=== PATIENT | male | born 1990 | race Caucasian/White ===

== ENCOUNTER 2021-10-13 11:31 | Day surgery (SDC) | payer OTHER ==
[~2021-10-13] VITALS: Ht 182.9 cm; Wt 101.2 kg
[~2021-10-13 11:31] MED LIST: ANTACID SUSP 30 ML UDC (MYLANTA) PO PRN; CALCIUM CARBONATE 500 MG (TUMS) TAB.CHEW PO PRN; MELATONIN 3 MG TABLET PO PRN; ONDANSETRON 4 MG/2 ML (SDV) Z0FRAN IV PRN; VANCOMYCIN INJECTION 0.1 MG in NS (IVPB) 250 ML IV SCH; polyethylene glycoL POWDER 17 GM (MIRALAX) PACK PO PRN
[2021-10-13] MEDS ORDERED: LIDOCAINE/EPI 1%-1:200,000 (XYLOCAINE) 30 ML VIAL INJ ONE (12:30)
[2021-10-13 12:44] VITALS: BP 128/87
--- NOTE | 2021-10-13 13:33 | CONSULTATION REPORT ---
DATE OF SERVICE: 10/13/2021 ADMITTING PHYSICIAN: Dr. Carlie Arteaga. HISTORY OF PRESENT ILLNESS: The patient is a 31-year-old male who is seen in the Emergency Department with pain and swelling along the volar surface of the right forearm. 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 He reports that two days ago, he felt a small bump and he felt that this was an insect bite and this became pruritic, and he did itch this. Approximately a day and half later, the area became much more red, erythematous as well as painful. He was started on oral antibiotics; however, this did not appear to help. On examination, there is an area of redness and swelling along the volar aspect of the right upper extremity extending beyond the elbow. There is some hardness and some mild fluctuance that may indicate an early abscess as well. PAST MEDICAL HISTORY: None. PAST SURGICAL HISTORY: Left inguinal hernia repair. ALLERGIES: PENICILLIN. MEDICATIONS: None. SOCIAL HISTORY: Positive smoke 15 pack years, social alcohol. FAMILY HISTORY: Noncontributory. VITAL SIGNS: Stable, afebrile. REVIEW OF SYSTEMS: Well-nourished male currently in no acute distress. He is not experiencing any shortness of breath or difficulty breathing. No chest pain, palpitations, diaphoresis. No nausea, vomiting, no diarrhea or constipation. No fever, chills, no recent inadvertent weight loss. All other review of systems negative. PHYSICAL EXAMINATION: CHEST: Clear. Good breath sounds bilaterally. HEART: Regular, no murmurs. EXTREMITIES: No lower extremity edema, negative Homans sign. HEENT: No scleral icterus. NECK: No cervical lymphadenopathy. ABDOMEN: Soft, nontender, nondistended. SKIN: Along the volar aspect of the right forearm is an area of redness as well as crusted over dry material. There is a small area of fluctuance as well as surrounding redness and erythema extending beyond the elbow. This is tender to palpation as well. ASSESSMENT AND PLAN: A 31-year-old male with early abscess as well as surrounding cellulitis of the right volar aspect of the upper extremity. He has had failed outpatient oral antibiotic treatment and will be admitted for IV antibiotics and we will also proceed with an incision and drainage and send the fluid off for culture and sensitivity to tailor antibiotic regimen. Job ID: [id number] DocumentID: [id number] Dictated Date: 10/13/2021 12:28:54 Care Team Assistant Date: 10/13/2021 13:15:19 Dictated By: WES BERRY MD [facility]
[2021-10-13 13:51] LABS: HEMATOCRIT 47 % (40-54); HEMOGLOBIN 16.2 g/dL (13.3-17.7); MEAN CORPUSCULAR HEMOGLOBIN 31 pg (25-34); MEAN CORPUSCULAR HGB CONC 35 g/dL (32-36); MEAN CORPUSCULAR VOLUME 90 fL (80-99); PLATELET COUNT 257 10^3/uL (130-400); WHITE BLOOD COUNT 7.7 10^3/uL (4.3-11.0)
[2021-10-13] MEDS: NS IV 1000 ML 1,000 ML IV SCH ×3 (13:53→23:35)
[2021-10-13] MEDS: VANCOMYCIN 1 GM/NS 250 ML IVPB IV SCH ×4 (13:54→20:51)
[2021-10-13] MEDS ORDERED: DOXY100C5 PO (14:01)
[2021-10-13] MEDS ORDERED: CEPH500C PO (14:01)
[2021-10-13 14:12] LABS: CALCIUM 9.4 MG/DL (8.5-10.1); CREATININE SERUM 0.89 MG/DL (0.60-1.30); POTASSIUM 4.4 MMOL/L (3.6-5.0)
[2021-10-13 15:19] VITALS: BP 130/91
[2021-10-13] MEDS ORDERED: cefTRIAXone 2,000 MG in NS (IVPB) 50 ML IV SCH (18:00)
[2021-10-13] MEDS ORDERED: ACETAMINOPHEN 325 MG TABLET PO PRN (18:00)
[2021-10-13 19:07] VITALS: BP 138/74
--- NOTE | 2021-10-13 22:55 | OPERATIVE REPORT ---
DATE OF SERVICE: 10/13/2021 PREOPERATIVE DIAGNOSIS: Right arm abscess and cellulitis. POSTOPERATIVE DIAGNOSIS: Right arm abscess and cellulitis. PROCEDURE: Incision and drainage, right upper extremity abscess. SURGEON: Wes Berry MD ANESTHESIA: Local. ESTIMATED BLOOD LOSS: Minimal. FINDINGS: Small abscess cavity with a turbid fluid. DISPOSITION: The patient tolerated the procedure well. 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 He states that he does do a significant amount of lifting and exertion as well as sweating. He reports what he thought was an insect bite along the volar aspect of the right upper extremity. This was pruritic and he did itch this. Since that time, he was placed on oral antibiotics; however, he did develop worsening redness, erythema as well as an area of fluctuance as well as edema of the forearm. He is not experiencing any systemic symptoms of fever, no chills. DESCRIPTION OF PROCEDURE: The right upper extremity was prepped and draped in standard surgical fashion. A 1% lidocaine with epinephrine was used to anesthetize overlying skin to the lesion. A longitudinal incision was made over the abscess using a 10 blade where a small abscess cavity with turbid fluid was identified. Loculations were then broken up bluntly. The fluid was sent for culture and sensitivity. Wound was then packed with sterile gauze followed by 4 x 4 gauze followed by Shonna wrap. The patient tolerated the procedure well. We will proceed with IV antibiotics and await culture and sensitivity to fine tailor long-term antibiotic regimen. Job ID: [id number] DocumentID: [id number] Dictated Date: 10/13/2021 12:32:36 Automotive Software Engineer Date: 10/13/2021 22:54:34 Dictated By: WES BERRY MD
[2021-10-14 00:11] VITALS: BP 117/70
[2021-10-14 03:41] VITALS: BP 124/64
[2021-10-14] MEDS: VANCOMYCIN 1 GM/NS 250 ML IVPB IV SCH ×2 (04:51)
[2021-10-14 05:57] LABS: HEMATOCRIT 41 % (40-54); HEMOGLOBIN 14.1 g/dL (13.3-17.7); MEAN CORPUSCULAR HEMOGLOBIN 32 pg (25-34); MEAN CORPUSCULAR HGB CONC 34 g/dL (32-36); MEAN CORPUSCULAR VOLUME 92 fL (80-99); MEAN PLATELET VOLUME 10.6 fL (9.0-12.2); PLATELET COUNT 232 10^3/uL (130-400); WHITE BLOOD COUNT 8.7 10^3/uL (4.3-11.0)
[2021-10-14 06:18] LABS: CALCIUM 8.3 MG/DL (8.5-10.1)
[2021-10-14 06:23] LABS: CREATININE SERUM 0.83 MG/DL (0.60-1.30)
[2021-10-14] MEDS: NS IV 1000 ML 1,000 ML IV SCH (07:48)
[2021-10-14 08:06] VITALS: BP 128/81
[2021-10-14] MEDS ORDERED: fentaNYL INJ 100 MCG/2 ML AMP ONE (10:54)
[2021-10-14] MEDS ORDERED: LIDOCAINE 1% INJ 20 ML VIAL ONE (11:05)
[2021-10-14] MEDS ORDERED: fentaNYL INJ 100 MCG/2 ML AMP IVP ONE (11:15)
[2021-10-14] MEDS ORDERED: OXYC5TAB PO (11:29)
[2021-10-14 11:54] VITALS: BP 128/81
[2021-10-14] MEDS ORDERED: TROUGH ORDER-PHARMACY XX NR (12:00)
--- NOTE | 2021-10-14 12:01 | Progress Note ---
Subjective Date Seen by a Provider: Oct 14, 2021 Time Seen by a Provider: 10:40 Subjective/Events-last exam Patient reports doing well. Denies any fever/chills or right forearm pain. Tolerating diet. Objective Exam Vital Signs Date Time Temp Pulse Resp B/P (MAP) Pulse Ox O2 Delivery O2 Flow Rate FiO2 10/14/21 08:06 36.7 84 18 128/81 (97) 97 Room Air 10/14/21 08:00 97 Room Air 10/14/21 03:41 36.6 76 17 124/64 (84) 97 Room Air 10/14/21 00:11 36.2 85 18 117/70 (86) 97 Room Air 10/13/21 20:27 Room Air 10/13/21 19:07 36.7 95 18 138/74 (95) 96 Room Air 10/13/21 15:19 36.8 82 18 130/91 (104) 97 Room Air 10/13/21 12:44 36.6 80 20 128/87 (101) 98 Room Air 10/13/21 12:00 98 Room Air I & O 10/14/21 07:00 Intake Total 1740 ml Output Total 500 ml Balance 1240 ml Capillary Refill : General Appearance: No Apparent Distress, WD/WN Neck: Normal Inspection, Supple Respiratory: No Accessory Muscle Use, No Respiratory Distress Cardiovascular: Regular Rate, Rhythm, No Edema Extremity: Normal Range of Motion, Other (Right forearm incision with dressing in place. Mild localized redness/erythema noted around incision. 7cc Lidocaine was used to anesthesize the skin and surround tissue due to patient unable to tolerate packing being removed. Good granulation tissue with no active drainage. Wound was repacked with iodoform packing gauze and covered with gauze dressing secured with kerlix.) Neurologic/Psychiatric: Alert, Oriented x3 Skin: Normal Color, Warm/Dry Results Lab Laboratory Tests 10/13/21 13:28: White Blood Count 7.7, Red Blood Count 5.18, Hemoglobin 16.2, Hematocrit 47, Mean Corpuscular Volume 90, Mean Corpuscular Hemoglobin 31, Mean Corpuscular Hemoglobin Concent 35, Red Cell Distribution Width 12.5, Platelet Count 257, Mean Platelet Volume 10.0, Sodium Level 141, Potassium Level 4.4, Chloride Level 107, Carbon Dioxide Level 26, Anion Gap 8, Blood Urea Nitrogen 12, Creatinine 0.89, Estimat Glomerular Filtration Rate 116, BUN/Creatinine Ratio 13, Glucose Level 86, Calcium Level 9.4 10/14/21 05:20: White Blood Count 8.7, Red Blood Count 4.48, Hemoglobin 14.1, Hematocrit 41, Mean Corpuscular Volume 92, Mean Corpuscular Hemoglobin 32, Mean Corpuscular Hemoglobin Concent 34, Red Cell Distribution Width 12.5, Platelet Count 232, Mean Platelet Volume 10.6, Sodium Level 139, Potassium Level 4.0, Chloride Level 108H, Carbon Dioxide Level 23, Anion Gap 8, Blood Urea Nitrogen 13, Creatinine 0.83, Estimat Glomerular Filtration Rate 119, BUN/Creatinine Ratio 16, Glucose Level 96, Calcium Level 8.3L Microbiology 10/13/21 Gram Stain - Final, Resulted 10/13/21 Wound Culture - Preliminary, Resulted No growth Assessment/Plan Assessment/Plan Assess & Plan/Chief Complaint A 31 year old male with cellulitis of the right upper extremity VSS WBC 8.7 Dressing changed and ok to go home with abx and pain meds. Follow up in 1-2 weeks. FAWN LEON URBAN SOCIOLOGIST Oct 14, 2021 12:01
--- NOTE | 2021-10-14 16:50 | Discharge Summary ---
Discharge Summary Hospital Course Problems/Dx: (1) Cellulitis Status: Acute Qualifiers: Qualified Codes: L03.113 - Cellulitis of right upper limb (2) Abscess Status: Acute Hospital Course Date of Admission: Oct 13, 2021 at 11:31 Admission Diagnosis : Cellulitis and abscess of right forearm Family Physician/Provider: Date of Discharge: 10/14/21 Discharge Diagnosis: Cellulitis and abscess of right forearm Hospital Course: Juancho Vicente is a 31 year old male who was admitted with cellulitis and abscess of right forearm. Surgery was consulted and performed I&D. He was treated with IV Vancomycin. He was transitioned back to Keflex and Doxycycline on discharge. His cultures were still pending but had no growth to date at the time of discharge. He was given a prescription for Tramadol to help with pain during dressing changes. He was discharged home in stable condition. He will follow up with Dr. Francis in about a week. Labs and Pending Lab Test: Laboratory Tests 10/14/21 05:20: White Blood Count 8.7, Red Blood Count 4.48, Hemoglobin 14.1, Hematocrit 41, Mean Corpuscular Volume 92, Mean Corpuscular Hemoglobin 32, Mean Corpuscular Hemoglobin Concent 34, Red Cell Distribution Width 12.5, Platelet Count 232, Mean Platelet Volume 10.6, Sodium Level 139, Potassium Level 4.0, Chloride Level 108H, Carbon Dioxide Level 23, Anion Gap 8, Blood Urea Nitrogen 13, Creatinine 0.83, Estimat Glomerular Filtration Rate 119, BUN/Creatinine Ratio 16, Glucose Level 96, Calcium Level 8.3L Microbiology 10/13/21 Gram Stain - Final, Resulted 10/13/21 Wound Culture - Preliminary, Resulted No growth Home Meds Active Reported Doxycycline Hyclate 100 Mg Capsule 100 Mg PO BID FILLED 10-12-2021 #20/10 DAY SUPPLY Cephalexin 500 Mg Capsule 500 Mg PO QID FILLED 10-12-2021 #40/10 DAY SUPPLY Assessment/Pt Instructions See instructions Discharge Planning: <30 minutes discharge planning Discharge Instructions Discharge Diet: No Restrictions Activity as Tolerated: Yes Consultations Surgery Discharge Physical Examination Vital Signs Vital Signs Date Time Temp Pulse Resp B/P (MAP) Pulse Ox O2 Delivery O2 Flow Rate FiO2 10/14/21 11:54 36.7 84 18 128/81 97 Room Air General Appearance: No Apparent Distress, WD/WN HEENT: PERRL/EOMI, Pharynx Normal Respiratory: Lungs Clear, Normal Breath Sounds, No Respiratory Distress Cardiovascular: Regular Rate, Rhythm, No Edema, No Murmur Gastrointestinal: Normal Bowel Sounds, Non Tender, Soft Extremity: Non Tender, No Pedal Edema, Other (right arm bandaged) Neurologic/Psychiatric: Alert, Normal Mood/Affect Allergies: Coded Allergies: Penicillins (Verified Allergy, Unknown, PT HAS REC CEPHALEXIN IN THE PAST, 10/13/21) Discharge Summary Date of Admission Oct 13, 2021 at 11:31 Date of Discharge Oct 14, 2021 at 11:57 Discharge Date: Oct 14, 2021 Discharge Time: 11:57 Admission Diagnosis Cellulitis and abscess of right forearm Consults/Procedures Consulations Surgery Procedures I&D Discharge Diagnosis (1) Cellulitis Status: Acute Qualifiers: Qualified Codes: L03.113 - Cellulitis of right upper limb (2) Abscess Status: Acute KINSEY GOODWIN MD Oct 14, 2021 16:49
== END 2021-10-14 11:57 | disposition home or self-care (01) ==
LOC: 4TH 11:31 → 4THo 11:31 → UNDOADMOB 11:31 → 4TH 11:31 → EDSTATUS 13:45 → 4TH 16:55 → 4THo 10-14 11:57 → UNDODISOB 10-14 11:57
PROVIDERS: ATTEND Family Medicine
DX: L02.413 Cutaneous abscess of right upper limb (principal); L03.113 Cellulitis of right upper limb
CPT/HCPCS: 36415; 80048; 85027; 87070; 87205; 96361; 96365; 96375; 96376